=== PATIENT | female | born 1950 | race Asian ===

== ENCOUNTER 2016-04-13 15:41 | Emergency (ER) | payer OTHER ==
--- NOTE | 2016-04-13 15:44 | PDOC ---
History of Present Illness - General History Source: Patient, Family, Primary Care Provider Exam Limitations: No Limitations - History of Present Illness Initial Comments: 04/13/16 17:14 The patient is a 66 year old female, with a significant past medical history of , who presents to the emergency department with right eye pain. The patient was sent to the ED for evaluation by her PMD. On presentation the patient reports that she had began to have right eye pain and decreased vision since before new year's day. The patient denies chest pain, shortness of breath, headache and dizziness. Denies fever, chills, nausea, vomit, diarrhea and constipation. Denies dysuria, frequency, urgency and hematuria. Allergies: Acetaminophen, ibuprofen, propoxyphene Past surgical history: Right thigh surgery (9 years old) Social history: No tobacco, alcohol or drug use reported <Khai Chapman - Last Filed: 04/13/16 17:17> - General History Source: Patient, Family Exam Limitations: No Limitations <Taryn Mattson - Last Filed: 04/14/16 15:34> - General Chief Complaint: Difficulty with Vision Stated Complaint: PAIN RT EYE Time Seen by Provider: 04/13/16 15:43 Past History <Khai Chapman - Last Filed: 04/13/16 17:17> <Taryn Mattson - Last Filed: 04/14/16 15:34> - Past Medical History Allergies/Adverse Reactions: Allergies Allergy/AdvReac Type Severity Reaction Status Date / Time acetaminophen Allergy Verified 04/13/16 15:44 [From Darvocet-N] ibuprofen [From Motrin] Allergy Verified 04/13/16 15:44 propoxyphene napsylate Allergy Verified 04/13/16 15:44 [From Darvocet-N] Home Medications: Ambulatory Orders NK [No Known Home Medication] 04/13/16 Review of Systems - Review of Systems Able to Perform ROS?: Yes Comments:: 04/13/16 17:14 GENERAL/CONSTITUTIONAL: No: fever, chills, weakness, loss of appetite. HEAD, EYES, EARS, NOSE AND THROAT: +Change in vision. Right eye pain. No: ear pain, discharge, sore throat, throat swelling. CARDIOVASCULAR: No: chest pain, lightheadedness, palpitations, syncope RESPIRATORY: No: cough, shortness of breath, wheezing, hemoptysis, stridor. GASTROINTESTINAL: No: nausea, vomiting, abdominal cramping, diarrhea, rectal bleeding, constipation. GENITOURINARY: No: dysuria, hematuria, frequency, urgency, flank pain. MUSCULOSKELETAL: No: back pain, neck pain, joint pain, muscle swelling or pain SKIN AND BREASTS: No: lesions, pallor, rash or easy bruising. NEUROLOGIC: No: headache, vertigo, paresthesias, weakness ENDOCRINE: No: unexplained weight gain or loss HEMATOLOGIC/LYMPHATIC: No: anemia, easy bleeding, swelling nodes <Khai Chapman - Last Filed: 04/13/16 17:17> *Physical Exam - Vital Signs Last Vital Signs Temp Pulse Resp BP Pulse Ox 97.9 F 73 16 138/85 100 04/13/16 15:55 04/13/16 15:55 04/13/16 15:55 04/13/16 15:55 04/13/16 15:55 - Physical Exam Comments: 04/13/16 17:15 GENERAL: The patient appears uncomfortable. HEAD: Normal with no signs of trauma. EYES: +right eye cloudy, cornea cloudy, sclera injected, tearing, globe tender to palpation. EOMI. ENT: Ears normal, nares patent, oropharynx clear without exudates. Moist mucous membranes. NECK: Normal range of motion, supple without lymphadenopathy, JVD, or masses. LUNGS: Breath sounds equal, clear to auscultation bilaterally. No wheezes, and no crackles. HEART:Regular rate and rhythm, normal S1 and S2 without murmur, rub or gallop. ABDOMEN: Soft, nontender, normoactive bowel sounds. No guarding, no rebound. EXTREMITIES: Normal range of motion, no edema. No clubbing or cyanosis. No erythema, or tenderness. NEUROLOGICAL: Cranial nerves II through XII grossly intact. Normal speech. No focal neurological deficits. MUSCULOSKELETAL: Back non-tender to palpation, no CVA tenderness SKIN: Warm, Dry, normal turgor, no rashes or lesions noted. <Khai Chapman - Last Filed: 04/13/16 17:17> Heart Score/ECG Review #1 ECG reviewed & interpreted by me at: 17:12 04/13/16 17:12 Twelve-lead EKG was performed and reviewed by me. There is normal sinus rhythm with a slightly bradycardiac rate of 58bpm. The axis is normal. The intervals are normal - pr:140ms, QRS:70ms, QTc:410ms. There are no ST elevations or depressions. T wave nml <Taryn Mattson - Last Filed: 04/14/16 15:34> ED Treatment Course - LABORATORY CBC & Chemistry Diagram: 04/13/16 16:00 04/13/16 16:00 - ADDITIONAL ORDERS Additional order review: Laboratory Results 04/13/16 04/13/16 16:00 16:00 INR 1.09 Sodium 135 L Potassium 3.3 L Chloride 102 Carbon Dioxide 26 Anion Gap 7 L BUN 11 Creatinine 0.7 Creat Clearance w eGFR > 60 Random Glucose 127 H Calcium 8.9 Total Bilirubin 0.5 AST 29 ALT 22 Alkaline Phosphatase 50 Total Protein 7.1 Albumin 4.3 04/13/16 16:00 RBC 4.71 MCV 81.8 MCHC 31.2 L RDW 13.1 MPV 7.0 L Neutrophils % 78.5 Lymphocytes % 15.4 Monocytes % 4.4 Eosinophils % 1.3 Basophils % 0.4 - RADIOLOGY Radiograph Interpretation: 04/13/16 17:17 Chest X-Ray Reviewed by: Dr. Yemi Pereira Impression: No acute cardiopulmonary disease is present. - Medications Given in the ED: ED Medications Discontinued Medications Generic Name Dose Route Start Last Admin Trade Name Freq PRN Reason Stop Dose Admin Mannitol 50 gm 04/13/16 15:45 04/13/16 16:25 Osmitrol - IVPB 04/13/16 15:46 50 gm ONCE ONE Administration Timolol Maleate 2 drop 04/13/16 16:37 04/13/16 17:01 Timoptic 0.5% OS 04/13/16 16:38 Not Given NOW ONE <Khai Chapman - Last Filed: 04/13/16 17:17> - LABORATORY CBC & Chemistry Diagram: 04/13/16 16:00 04/13/16 16:00 <Taryn Mattson - Last Filed: 04/14/16 15:34> Medical Decision Making - Critical Care Time Total Critical Care Time (minutes): 35 Critical Care Statement: The care of this patient involved high complexity decision making to prevent further life threatening deterioration of the patient 's condition and/or to evalute & treat vital organ system(s) failure or risk of failure. - Medical Decision Making 04/13/16 15:44 A portion of this note was documented by scribe services under my direction. I have reviewed the details of the note, within reason, and agree with the documentation with the following case summary and management plan written by me. Nursing documentation reviewed and incorporated into medical decision making 66 yo F presenting to the ER from [facility] due to acute narrow angle glaucoma Symptoms have been present since before New years Pt had a cold and could not seek medical attention Pt has noted loss of vision in the right eye Was finally seen today by Dr Washington who attempted laser surgery but could not proceed Pt sent to the ER for Mannitol to assist with lowering intra occular pressure Mannitol started almost immediately 04/13/16 16:38 Laboratory Tests 04/13/16 04/13/16 16:00 16:00 WBC 6.5 Hgb 12.0 Hct 38.5 Plt Count 437 H Neutrophils % 78.5 Lymphocytes % 15.4 INR 1.09 04/13/16 17:[address] Timolol drops Unable to do so (they run out of pt eye) Laboratory Tests 04/13/16 04/13/16 04/13/16 16:00 16:00 16:00 WBC 6.5 Hgb 12.0 Hct 38.5 Plt Count 437 H Neutrophils % 78.5 Lymphocytes % 15.4 INR 1.09 Sodium 135 L Potassium 3.3 L Chloride 102 Carbon Dioxide 26 BUN 11 Creatinine 0.7 Random Glucose 127 H 04/13/16 18:[address] Washington Will plan to discharge to home as her Occular Pressures have decreased from 70 to 28 Pt was given 50mg of Mannitol Per up to date, concern for renal insufficiency is most prominent in patients who were given 200-300g or pt with renal insufficiency Pt given drops by Dr. Washington Pt will follow up with him tomorrow Vision NOT improved Clinical Impression: Narrow angle Glaucoma <Taryn Mattson - Last Filed: 04/14/16 15:34> *DC/Admit/Observation/Transfer - Attestations Scribe Attestion: 04/13/16 17:16 Documentation prepared by Khai Chapman, acting as emergency medical services coordinator for Taryn Mattson MD. <Khai Chapman - Last Filed: 04/13/16 17:17> - Discharge Dispostion Admit: No <Taryn Mattson - Last Filed: 04/14/16 15:34> Diagnosis at time of Disposition: Narrow angle glaucoma of right eye - Discharge Dispostion Disposition: HOME Condition at time of disposition: Improved - Referrals Referrals: Abel Washington MD [Staff Physician] - - Patient Instructions Printed Discharge Instructions: Angle-Closure Glaucoma Additional Instructions: PLEASE FOLLOW UP WITH DR WASHINGTON TOMORROW MORNING YOU CAN TAKE ASPIRIN FOR YOUR HEADACHE RETURN TO THE ER FOR WORSENING SYMPTOMS
[2016-04-13] MEDS ORDERED: MANNITOL 25% 12.5 GM/50 ML VIAL IVPB ONE ×3 (15:45→16:05)
[2016-04-13 16:30] LABS: INR 1.09 (0.82-1.09); PROTHROMBIN TIME (PATIENT) 11.9 SEC (10.2-13.0)
[2016-04-13 16:31] LABS: BASOPHIL 0.4 % (0-2.0); EOSINOPHIL 1.3 % (0-4.5); MCH 25.5 pg (25.7-33.7); MCHC 31.2 g/dl (32.0-36.0); MEAN CELL VOLUME 81.8 fl (80-96); NEUTROPHILS 78.5 % (42.8-82.8); PLATELET COUNT 437 K/MM3 (134-434); RDW 13.1 % (11.6-15.6); WHITE BLOOD COUNT 6.5 K/mm3 (4.0-10.0)
[2016-04-13 16:35] LABS: ALBUMIN 4.3 g/dl (3.5-5.0); ALK PHOS 50 U/L (32-92); ANION GAP 7 (8-16); BILIRUBIN,TOTAL 0.5 mg/dl (0.2-1.0); CALCIUM 8.9 mg/dl (8.4-10.2); CO2 26 mmol/L (22-28); CREATININE 0.7 mg/dl (0.6-1.3); GLUCOSE,RANDOM 127 mg/dl (74-106); SGOT/AST 29 U/L (10-42); SGPT/ALT 22 U/L (10-40); TOT PROT 7.1 g/dl (6.4-8.3)
[2016-04-13] MEDS ORDERED: TIMOLOL 0.5% OPHTHALMIC SOL 5 ML BOTTLE OS ONE (16:37)
[2016-04-13 16:53] VITALS: TEMP 97.9; BMI 20.7
[2016-04-13] MEDS ORDERED: TIMOLOL 0.5% OPHTHALMIC SOL 5 ML BOTTLE OD ONE ×2 (17:17→17:19)
[2016-04-13 18:21] VITALS: BP 162/90; PULSE 70
--- NOTE | 2016-04-16 13:16 | EKG ---
Test Reason : Blood Pressure : / mmHG Vent. Rate : 058 BPM Atrial Rate : 058 BPM P-R Int : 140 ms QRS Dur : 070 ms QT Int : 418 ms P-R-T Axes : 067 051 056 degrees QTc Int : 410 ms POOR DATA QUALITY, INTERPRETATION MAY BE ADVERSELY AFFECTED SINUS BRADYCARDIA NO PREVIOUS ECGS AVAILABLE Confirmed by STEVE ISLAS MD ([id number]) on 04/16/2016 1:15:49 PM Referred By: NEVILLE Confirmed By:STEVE ISLAS MD
== END 2016-04-13 18:39 | disposition home or self-care (01) ==
LOC: FER 15:41
PROC: 3E033GC Introduction of Other Therapeutic Substance into Peripheral Vein, Percutaneous Approach (ICD-10-PCS; principal; 2016-04-13)
DX: H40.20X0 Unspecified primary angle-closure glaucoma, stage unspecified (principal)
CPT/HCPCS: 36415; 71010-TC; 80053; 85025; 85610; 93005; 96374; 99282-25

== ENCOUNTER 2016-04-25 09:16 | Day surgery (SDC) | payer OTHER ==
[2016-04-24 13:25] VITALS: BMI 20.7
[2016-04-25] MEDS ORDERED: BSS (NA/CA/MG/K) BALANCED SALT SOLUTION OPHTH SOLN 15 ML BOTTLE ONE ×2 (09:34→11:40)
[2016-04-25] MEDS ORDERED: CARBACHOL 0.01% INTRA-OCULAR 1.5 ML VIAL ONE (09:34)
[2016-04-25] MEDS: CIPROFLOXACIN 0.3% EYE DROPS 5 ML BOTTLE ONE ×3 (09:45→09:55)
[2016-04-25] MEDS ORDERED: MIDAZOLAM HCL 2 MG/2 ML SINGLE DOSE VIAL ONE ×2 (11:18→11:43)
[2016-04-25] MEDS ORDERED: TETRACAINE 0.5% OPHTH SOLN 2 ML BOTTLE ONE ×2 (11:29→12:04)
[2016-04-25] MEDS ORDERED: MANNITOL 25% 12.5 GM/50 ML VIAL IVPB ONE ×2 (11:59→12:00)
[2016-04-25 13:19] VITALS: TEMP 98.1
[2016-04-25 13:50] VITALS: BP 142/80; PULSE 86
== END 2016-04-25 14:00 | disposition home or self-care (01) ==
LOC: FASU 09:16
PROVIDERS: ATTEND Ophthalmology
PROC: 08RJ3JZ Replacement of Right Lens with Synthetic Substitute, Percutaneous Approach (ICD-10-PCS; 2016-04-25)
PROC: 08BC3ZZ Excision of Right Iris, Percutaneous Approach (ICD-10-PCS; principal; 2016-04-25 11:28)
DX: H40.211 Acute angle-closure glaucoma, right eye (principal); H26.8 Other specified cataract
CPT/HCPCS: 94760

== ENCOUNTER 2017-05-01 06:56 | Day surgery (SDC) | payer OTHER ==
[2017-04-19 11:48] VITALS: BMI 20.7
[2017-05-01] MEDS ORDERED: LIDOCAINE 1% P/F 10 MG/ML VIAL ONE (07:14)
[2017-05-01] MEDS ORDERED: BSS (NA/CA/MG/K) BALANCED SALT SOLUTION OPHTH SOLN 15 ML BOTTLE ONE (07:15)
[2017-05-01] MEDS ORDERED: CARBACHOL 0.01% INTRA-OCULAR 1.5 ML VIAL ONE (07:15)
[2017-05-01] MEDS ORDERED: ACETYLCHOLINE 1:100 INTRA-OCUL 20 MG/2 ML KIT ONE (07:15)
[2017-05-01] MEDS ORDERED: TETRACAINE 0.5% OPHTH SOLN 2 ML BOTTLE ONE (07:15)
[2017-05-01] MEDS: TROPICAMIDE 1% OPHTH SOLN 15 ML BOTTLE ONE ×3 (07:30→07:40)
[2017-05-01] MEDS: CYCLOPENTOLATE 2% OPHTH SOLN 2 ML BOTTLE ONE ×3 (07:30→07:40)
[2017-05-01] MEDS: CIPROFLOXACIN 0.3% EYE DROPS 5 ML BOTTLE ONE ×3 (07:30→07:40)
[2017-05-01] MEDS: PHENYLEPHRINE 2.5% OPHTH SOLN 15 ML BOTTLE ONE ×3 (07:30→07:40)
[2017-05-01] MEDS ORDERED: ONDANSETRON 4 MG/2 ML VIAL ONE (08:49)
[2017-05-01] MEDS ORDERED: DEXAMETHASONE SOD PHOSPHATE 4 MG/1 ML VIAL ONE (08:49)
[2017-05-01 09:32] VITALS: TEMP 98.1
[2017-05-01 10:13] VITALS: BP 128/77; PULSE 72
--- NOTE | 2017-05-01 11:12 | OP ---
DATE OF OPERATION: 05/01/2017 OPERATIVE PROCEDURE: Lens Phacoemulsification with Posterior Chamber Intraocular Lens Placement Left Eye PREOPERATIVE DIAGNOSIS: Visually Significant Cataract of Left Eye POSTOPERATIVE DIAGNOSIS: Visually Significant Cataract of Left Eye SURGEON: Abel Washington M.D. ANESTHESIA: MAC ANESTHESIOLOGIST: PROCEDURE: The patient was brought to the operating room and placed under monitored anesthesia care by Anesthesia. A drop of Tetracaine was then placed over the left eye. The patient was then prepped and draped in the usual sterile manner. A speculum was then placed over the left eye. The eye was then well irrigated with copious amounts of BSS (balanced salt solution). The operating microscope was then moved into position. A paracentesis was performed using a 15 degree blade. At this point 0.5 mL of 1% preservative-free lidocaine was injected into the anterior chamber. Amvisc plus was then injected into the anterior chamber. A clear corneal incision was then formed using a 2.2 mm keratome. A capsulorrhexis was then performed in a continuous circular fashion beginning with a cystotome, completed with an Utratas forceps. Hydrodissection was then performed using BSS on a cannula. The phaco probe was then introduced through the corneal wound and the cataract was removed using the phaco chop technique. Approximately 3 seconds of absolute phaco time was used. The remaining cortex was then removed using irrigation and aspiration with an I/A probe. The capsule was then filled with regular Amvisc and the capsule was noted to be intact. A previously selected foldable posterior chamber intraocular lens was then injected into the capsule through the corneal wound using a lens injector. It was then dialed into position using a Sinskey hook. The Amvisc was then removed using irrigation and aspiration. Miostat was then injected through the paracentesis to constrict the pupil. The paracentesis and corneal wound were then hydrated and noted to be water tight. A drop of Maxitrol was then placed over the eye. The speculum was removed and clear shield was taped over the eye. The patient tolerated the procedure well and there were no surgical complications. The patient was asked to follow up in my office the next day. ABEL WASHINGTON M.D. [id number]
== END 2017-05-01 10:00 | disposition home or self-care (01) ==
LOC: FASU 06:56
PROVIDERS: ATTEND Ophthalmology
PROC: 08RK3JZ Replacement of Left Lens with Synthetic Substitute, Percutaneous Approach (ICD-10-PCS; principal; 2017-05-01 08:57)
DX: H26.8 Other specified cataract (principal)